=== PATIENT | male | born 1950 | race Caucasian/White ===

== ENCOUNTER 2017-12-10 13:58 | Emergency (ER) | payer OTHER ==
--- OUTSIDE RECORDS SUMMARY | 2017-12-10 14:09 | XMS REPORT ---
:1950 External Reference #:[id number] Author Organization [employer] Address [address] [place] [address] Phone [phone] Care Team Providers Name Role Phone Trevor Hernandez M.D. Primary Care Physician Unavailable Payers Type Date Identification Numbers Payment Provider Subscriber Commercial Policy Number: [id number] [employer] Ppo/Pos/Epo/Nap Pipo Serna PayID: [id number] [address] [place] [address] Problems Date Description Provider Status Onset: Myocardial infarction Active Onset: Hypercholesterolemia Active Onset: Essential hypertension Active Onset: 04/27/2017 Presbyopia Lynda Fong O.D. Active Onset: 04/27/2017 Regular astigmatism Lynda Fong O.D. Active Onset: 04/27/2017 Myopia Lynda Fong O.D. Active Onset: 04/27/2017 Open-angle glaucoma - borderline Lynda Fong O.D. Active Family History Date Family Member(s) Problem(s) Comments Father No Current Problems Mother Cataract Social History Type Date Description Comments Marital Status Legal Status: Occupation [employer] Work Status Full-Time Employment ETOH Use Consumes 1-2 beers per day Smoking Patient has never smoked Recreational Drug Use Denies Drug Use Daily Caffeine Consumes on average 3 cups of regular coffee per day Allergies, Adverse Reactions, Alerts Date Description Reaction Status Severity Comments 04/27/2017 NKDA active Medications Medication Date Status Form Strength Qnty SIG Indications Ordering Provider Atorvastatin Active Tablets 40mg Unknown Calcium 000 Metoprolol Active Tablets ER 50mg Unknown Succinate ER 000 24HR Amlodipine 00/00/0 Active Tablets 5mg Unknown Besylate 000 Nitroglycerin Active Tablets 0.4mg place 1 Unknown 000 Sub tablet under the tongue if needed every 5 minutes for rafal... Aspirin Low Active Chewtabs 81mg Unknown Strength 000 Results Description No Information Procedures Date CPT Code Description Status 04/29/2017 78944 Visual Field Exam Extended Completed 04/27/2017 20747 Scanning Computerized Ophthalmic Diagnostic Imag Completed Posterior Seg On 04/27/2017 48588 Determination Of Refractive State Completed 04/27/2017 77366 New Patient Comprehensive Exam Completed 04/27/2017 33698 Pachymetry Completed Encounters Type Date Location Provider CPT E/M Dx Office Visit 04/29/2017 Pipo Philip MD, Lynda Fong O.D. 33780 H40.013 10:15a Plan of Care 11/16/2017 - Lynda Fong O.D.H40.013 Open angle with borderline findings, low risk, bilateralComments:Dr. Fong is considering you a Glaucoma suspect. This means the eye pressure in your eyes are higher than average, your optic nerve appearance is suspicious, or you have strong risk factors; but you have not been diagnosed with Glaucoma. Follow up appointments are very important to keep.Follow up:6 months VF 30-2/ DFE/OCT nerve
[2017-12-10 14:12] VITALS: BP 154/85
--- NOTE | 2017-12-10 15:03 | UC ---
Respiratory Complaint HPI - HPI Summary HPI Summary: Pt presents with fatigue, dry cough, and sore throat for 2 weeks. He tells me that about 2 weeks ago he developed a fever of 102, body aches, and fatigue - thinks he had the flu. He rested and tried conservative treatment and home and his symptoms improved. Soon thereafter he developed a dry cough and sore throat that has been persistent. He has been using a netti pot. Denies fever, chills, SOB, chest pain, abdominal pain, n/v/d/c. - History of Current Complaint Chief Complaint: UCRespiratory Stated Complaint: COUGH Time Seen by Provider: 12/10/17 14:54 Hx Obtained From: Patient Onset/Duration: Gradual Onset Severity Initially: Mild Severity Currently: Mild Pain Intensity: 1 Pain Scale Used: 0-10 Numeric Character: Cough: Nonproductive - Allergies/Home Medications Allergies/Adverse Reactions: Allergies Allergy/AdvReac Type Severity Reaction Status Date / Time HORSE SERUM Allergy Intermediate Difficulty Uncoded 12/10/17 14:12 Breathing PMH/Surg Hx/FS Hx/Imm Hx Endocrine History: Dyslipidemia Cardiovascular History: Cardiac Disease, Hypertension - Surgical History Surgical History: Yes Surgery Procedure, Year, and Place: bilat hip replacements 1999,2005 [facility]. fx morgan repair 1989 [facility]. TONSILLECTOMY. CARDIAC STENTS X2 2012 [facility] [place]. Right shoulder tendon repair 2014 - Family History Known Family History: Positive: Hypertension - Social History Occupation: Retired Lives: Alone Alcohol Use: Daily Alcohol Amount: 2 DRINKS/DAY Substance Use Type: None Smoking Status (MU): Never Smoked Tobacco Have You Smoked in the Last Year: No - Immunization History Most Recent Influenza Vaccination: 08/2016 Most Recent Tetanus Shot: 20 yrs ago Review of Systems Constitutional: Negative Skin: Negative Eyes: Negative ENT: Sore Throat Respiratory: Cough Cardiovascular: Negative Gastrointestinal: Negative Neurovascular: Negative Musculoskeletal: Negative Neurological: Negative Psychological: Negative All Other Systems Reviewed And Are Negative: Yes Physical Exam Triage Information Reviewed: Yes Appearance: Well-Appearing, No Pain Distress, Well-Nourished Vital Signs: Initial Vital Signs Temp 97.7 F 12/10/17 14:09 Pulse 79 12/10/17 14:09 Resp 18 12/10/17 14:09 BP 154/85 12/10/17 14:09 Pulse Ox 98 12/10/17 14:09 Vital Signs Reviewed: Yes Eyes: Positive: Conjunctiva Clear. Negative: Conjunctiva Inflamed, Discharge ENT: Positive: Hearing grossly normal, Pharynx normal, TMs normal, Uvula midline. Negative: Pharyngeal erythema, Nasal congestion, Nasal drainage, TM bulging, TM dull, TM red, Tonsillar swelling, Tonsillar exudate, Hoarse voice, Sinus tenderness Neck: Positive: Supple, Nontender, No Lymphadenopathy Respiratory: Positive: Chest non-tender, Lungs clear, No respiratory distress, No accessory muscle use, Wheezing - Mild throughout Cardiovascular: Positive: RRR, No Murmur, Pulses Normal Neurological: Positive: Alert Psychological: Positive: Age Appropriate Behavior Skin: Negative: rashes UC Diagnostic Evaluation - Laboratory O2 Sat by Pulse Oximetry: 98 Respiratory Course/Dx - Course Course Of Treatment: Bronchitis - Differential Dx/Diagnosis Provider Diagnoses: Bronchitis Discharge - Discharge Plan Condition: Stable Disposition: HOME Prescriptions: Albuterol HFA INHALER* [Ventolin HFA Inhaler*] 1 - 2 puff INH Q6H PRN #1 mdi PRN Reason: Cough Benzonatate CAP* [Tessalon 100 MG CAP*] 100 mg PO TID PRN #21 cap PRN Reason: Cough predniSONE TAB* [Deltasone TAB*] 40 mg PO DAILY #10 tab Patient Education Materials: Acute Bronchitis (ED) Referrals: Trevor Hernandez MD [Primary Care Provider] - Additional Instructions: If you develop a fever, shortness of breath, chest pain, new or worsening symptoms - please call your PCP or go to the ED. Your blood pressure was high at todays visit. Please see your primary provider within 4 weeks for recheck and re-evaluation.
== END 2017-12-10 15:11 | disposition home or self-care (01) ==
LOC: UCEAST 13:58
DX: J40 Bronchitis, not specified as acute or chronic (principal); E78.5 Hyperlipidemia, unspecified; I11.9 Hypertensive heart disease without heart failure; Z96.643 Presence of artificial hip joint, bilateral; Z95.5 Presence of coronary angioplasty implant and graft
CPT/HCPCS: 99212; G0463

== ENCOUNTER 2018-03-22 10:34 | Day surgery (SDC) | payer OTHER ==
[~2018-03-22 10:34] MED LIST: Buffered Lidocaine 0.9% SYRIN* 5 ML/SYR SYRINGE INTRADERM ONE; Dexamethasone TAB* 4 MG PO ONE; DiMENhydriNATE IV* 50 MG/ML VIAL IV PUSH PRN; Famotidine TAB* 20 MG PO ONE; Morphine INJ* 2 MG/ML 1 ML CARPUJECT IV PRN; Naloxone* 0.4 MG/ML 1 ML VIAL IV PRN; Ondansetron INJ* 2 MG/ML VIAL ONE; PROCHLORPERAZINE INJ 5 MG/ML 2 ML VIAL IV PRN; Scopolamine 1.5 mg* PATCH TRANSDERM PRN; fentaNYL* 50 MCG/ML 2 ML VIAL (100 MCG VIAL) IV PRN; oxyCODONE/Acetamin 5/325 MG* TAB PO PRN
[2018-03-22] MEDS ORDERED: Ondansetron ODT TAB* 4 MG ONE (10:46)
[2018-03-22] MEDS ORDERED: Buffered Lidocaine 0.9% SYRIN* 5 ML/SYR SYRINGE ONE (10:46)
[2018-03-22] MEDS ORDERED: Famotidine TAB* 20 MG ONE (10:46)
[2018-03-22] MEDS ORDERED: Dexamethasone TAB* 4 MG ONE (10:46)
[2018-03-22] MEDS ORDERED: Midazolam* 1 MG/ML 5 ML VIAL (5 MG) ONE (11:47)
[2018-03-22] MEDS ORDERED: fentaNYL* 50 MCG/ML 2 ML VIAL (100 MCG VIAL) ONE (11:47)
[2018-03-22] MEDS ORDERED: Lidocaine 2% EPI 1:200000 MPF*10-20 ML VIAL ONE (12:41)
[2018-03-22] MEDS ORDERED: Triamcinolone Acetonide* 40 MG/ML 1 ML VIAL ONE (12:41)
[2018-03-22] MEDS ORDERED: Oxymetazoline 0.05% NASAL SPR* 15 ML BTL ONE (12:41)
[2018-03-22] MEDS ORDERED: Gelfoam 12-7 ADSORBABL SPONGE* 1 EA SPONGE ONE (12:42)
[2018-03-22] MEDS ORDERED: Gelatin ADSORBABLE (OPHTH)* OPHTH.FILM ONE (12:42)
[2018-03-22] MEDS ORDERED: Propofol* 10 MG/ML 20 ML BTL IV PUSH ONE (13:04)
[2018-03-22] MEDS ORDERED: Glycopyrrolate IV* 0.2 MG/ML 1 ML VIAL ONE (13:04)
[2018-03-22] MEDS ORDERED: Metoprolol Tartrate IV* 1 MG/ML 5 ML VIAL ONE (13:17)
[2018-03-22] MEDS ORDERED: Labetalol IV* 5 MG/ML 20 ML VIAL ONE (13:33)
[2018-03-22 15:12] VITALS: BP 133/82
--- NOTE | 2018-03-23 08:58 | OP ---
DATE OF OPERATION: 03/22/18 - [facility] DATE OF : 54 SURGEON: Arturo Keita MD PRE-OP DIAGNOSIS: Chronic sinusitis with purulent odorous discharge from right side. POST-OP DIAGNOSIS: OPERATIVE PROCEDURE: INDICATIONS: Has on CT scan extensive sinusitis of the right side with anterior and posterior ethmoidectomy and possible carious tooth. He has been on oral antibiotics, nasal steroids and oral steroids without improvement. DESCRIPTION OF PROCEDURE: The patient was taken to the operating room, the patient was intubated. Nose was decongested with Afrin placed pledgets. The right side was identified. CT scan, microshaver, endoscopic sinus surgery instruments including the 0 and 30-degree telescopes were utilized. Next, we turned our attention to the uncinate process on the right side carefully. 2% lidocaine with epinephrine was infiltrated. The uncinate process was removed and hyperplastic mucosa was removed along the uncinate region, as well as the antrostomy, which was again very hyperplastic mucosa as much of it was removed to open up the antrum. Ethmoidectomy was carried out entering the ethmoidal bulla and coursing posteriorly into the lamina papyracea laterally avoiding any intraorbital contents and then posteriorly through the ground lamella to the posterior ethmoidal cells. Gelfoam was then placed in the space between the middle turbinate and lateral nasal wall. The patient was awakened and sent to recovery room in stable condition. Instrument and sponge counts were correct. Blood loss was minimal. [id number]/[facility] #: [id number] CLIVE
[2018-03-25] MEDS ORDERED: Scopolamine PATCH Remove* 1 NOTE MISC PATCH OFF ONE (05:49)
== END 2018-03-22 15:32 | disposition home or self-care (01) ==
LOC: OR 10:34
PROVIDERS: ATTEND Otolaryngology
DX: J32.0 Chronic maxillary sinusitis (principal); J34.89 Other specified disorders of nose and nasal sinuses; I25.2 Old myocardial infarction; Z95.5 Presence of coronary angioplasty implant and graft; I10 Essential (primary) hypertension; E78.5 Hyperlipidemia, unspecified; I25.9 Chronic ischemic heart disease, unspecified; Z79.82 Long term (current) use of aspirin
CPT/HCPCS: 88305; A9270-GY; J2250; J2704; J3010; J3301; J3490; J8540

== ENCOUNTER 2018-05-15 07:01 | Emergency (ER) | payer OTHER ==
--- OUTSIDE RECORDS SUMMARY | 2018-05-15 07:08 | XMS REPORT ---
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 Cigarette Use Never Smoked Cigarettes Cigars Never Smoked Cigars Pipe Never Smoked A Pipe Smokeless Tobacco Never Used Smokeless Tobacco ETOH Use PT Consumes Alcohol Daily Allergies, Adverse Reactions, Alerts Date Description Reaction Status Severity Comments 03/02/2018 NKDA active Medications Medication Date Status Form Strength Qnty SIG Indications Ordering Provider Fluticasone 05/08/ Active Suspension 50mcg/Act 47.4ml 2 puffs J32.2 Arturo Propionate 2017 both Neela joyce MD once a day Doxycycline 00/00/ Active Capsules 100mg take 1 Unknown Hyclate 0000 capsule by mouth twice a day Metoprolol 00// Active Tablets ER 50mg Unknown Succinate ER 0000 24HR Atorvastatin 00/ Active Tablets 40mg take 1 Unknown Calcium 0000 tablet by mouth once daily Amlodipine 00/ Active Tablets 5mg take 1 Unknown Besylate 0000 tablet by mouth once daily Aspirin 81 Low 00/ Active Chewtabs 81mg daily Unknown Dose 0000 Vital Signs Date Vital Result Comment 05/08/2018 Weight 192.00 lb Weight in kg's 87.091 Height 69 inches 5'9" Height in cm's 175.3 cm BMI (Body Mass Index) 28.4 kg/m2 03/02/2018 Weight 190.00 lb Weight in kg's 86.184 Height 69 inches 5'9" Height in cm's 175.3 cm BMI (Body Mass Index) 28.1 kg/m2 Results Test Date Test Result H/L Range Note Laboratory test 03/22/2018 Surgical Pathology SEE RESULT BELOW 1 finding 1 SEE RESULT BELOW Name: KARIS SERNA : [address]: Joseph Keita MD Acct: [id number] Unit: [id number] AGE: 67 Location: OR Re03/22/18 SEX: M Status: VIOLETTA SERNA SPEC: [id number] VANNESA: 03/22/18-[address]: Joseph Keita MD REQ: [id number] RECD: 03/22/18 STATUS: SOUT _ ORDERED: LEVEL 4 FINAL DIAGNOSIS Right ethmoid sinus contents: -- Chronically inflamed respiratory mucosal fragments and bone. PRE-OPERATIVE DIAGNOSIS Chronic maxillary sinusitis right side GROSS DESCRIPTION The specimen is received in formalin labeled, Contents of Right Ethmoid, and consists of a 2.0 x 2.0 x 0.4 cm aggregate of white-pink irregular soft tissue fragments admixed with red-brown blood clot and scant bone. The specimen is filtered and entirely submitted in one cassette. Signed by and Reported on: Yogi Ratliff MD [address] REPORT DEPARTMENT OF PATHOLOGY, [address] [place] [address] Yogi Ratliff M.D. Director [facility] # [id number] Procedures Date CPT Code Description Status 03/22/2018 06008 N/Endoscopy/Max Antrostomy Completed 03/22/2018 01229 Nasal Endoscopy/Ethmoidectomy, Total Completed Encounters Type Date Location Provider CPT E/M Dx Office Visit 03/27/2018 8:30a [facility],After 11/07/07 [place] [address] J32.2 Office Visit 03/02/2018 2:15p [facility],After 11/07/07 [place] [address] J32.0 Plan of Care 05/08/2018 - Arturo Keita MDJ32.2 Chronic ethmoidal sinusitisNew Medication: Fluticasone Propionate 50 mcg/ActJ32.0 Chronic maxillary sinusitis
--- NOTE | 2018-05-15 07:13 | UC ---
Lower Extremity/Ankle HPI - HPI Summary HPI Summary: The patient is a 67-year-old male who presents here with a one-week history of progressively worsening left ankle pain and swelling. He denies any trauma. He states the lateral aspect of his ankle is most painful. The past 24 hours he has been unable to bear weight due to the pain. He denies any fever or chills. He denies any other joint pain or swelling. He has no history of gout. - History of Current Complaint Stated Complaint: ANKLE INJURY Time Seen by Provider: 05/15/18 07:08 Hx Obtained From: Patient Onset/Duration: Gradual Onset, Lasting Days Severity Initially: Mild Severity Currently: Moderate Pain Intensity: 4 - worse with wt bearing Aggravating Factor(s): Standing, Ambulation Alleviating Factor(s): Rest Able to Bear Weight: No - Allergies/Home Medications Allergies/Adverse Reactions: Allergies Allergy/AdvReac Type Severity Reaction Status Date / Time HORSE SERUM Allergy Intermediate Difficulty Uncoded 05/15/18 07:09 Breathing PMH/Surg Hx/FS Hx/Imm Hx Previously Healthy: Yes Endocrine History: Dyslipidemia Cardiovascular History: Cardiac Disease, Hypertension, Myocardial Infarction - Surgical History Surgical History: Yes Surgery Procedure, Year, and Place: bilat hip replacements 1999,2005 [facility]. fx morgan repair 1989 [place]. TONSILLECTOMY. CARDIAC STENTS X2 2012 [facility] [place]. Right shoulder tendon repair 2014 - Family History Known Family History: Positive: Hypertension - Social History Alcohol Use: Daily Alcohol Amount: 2 DRINKS/DAY Substance Use Type: None Smoking Status (MU): Never Smoked Tobacco Have You Smoked in the Last Year: No - Immunization History Most Recent Influenza Vaccination: 08/2016 Most Recent Tetanus Shot: 20 yrs ago Review of Systems Constitutional: Negative Skin: Negative Eyes: Negative ENT: Negative Respiratory: Negative Cardiovascular: Negative Gastrointestinal: Negative Genitourinary: Negative Motor: Negative Neurovascular: Negative Musculoskeletal: Arthralgia Neurological: Negative Psychological: Negative Is Patient Immunocompromised?: No All Other Systems Reviewed And Are Negative: Yes Physical Exam Triage Information Reviewed: Yes Appearance: Well-Appearing, No Pain Distress, Well-Nourished Vital Signs Reviewed: Yes Eyes: Positive: Conjunctiva Clear ENT: Positive: Hearing grossly normal. Negative: Nasal congestion, Nasal drainage, Trismus, Muffled voice, Hoarse voice Neck: Positive: Supple, Nontender Respiratory: Positive: Lungs clear, Normal breath sounds, No respiratory distress Cardiovascular: Positive: RRR, No Murmur Musculoskeletal: Positive: ROM Limited @ - left ankle-painful ROM, swollen ankle and foot- unable to bear wt/tender LM, no foot tenderness Psychological Exam: Normal Skin Exam: Normal Diagnostics - Radiology No standard instances Xray Interpretation: No Acute Changes - DJD/arterosclerosis Radiology Interpretation Completed By: Radiologist Lower Extremity Course/Dx - Course Course Of Treatment: pain seems out of proportion to xr and exam findings. I have suggest he see a specialist for their opinion. To see Cosmo Samuel from here. - Differential Dx/Diagnosis Provider Diagnoses: left ankle pain of uncertain cause Discharge - Sign-Out/Discharge Documenting (check all that apply): Discharge/Admit/Transfer - Discharge Plan Condition: Stable Disposition: HOME Patient Education Materials: Swollen Joint (ED) Referrals: Raciel Samuel MD [Medical Doctor] - As Soon As Possible (please go directly to office from here) - Billing Disposition and Condition Condition: STABLE Disposition: Home Images Feet (Multiple View): 1 - tender and swollen here/slight erthyema. swelling extends to dorsum of mid foot/good cap refill/n/v intact, + DP pulse. Pain with flexion/ext
[2018-05-15 07:14] VITALS: BP 109/74
--- NOTE | 2018-05-15 08:02 | RAD ---
INDICATION: Atraumatic pain and swelling of the left ankle COMPARISON: None. TECHNIQUE: 3 views of the left ankle were obtained. FINDINGS: The well corticated bones exhibit normal alignment. Degenerative changes include amorphous calcification between the distal tibia and fibula at the expected location of the interosseous ligament. Immediately posterior to the talocalcaneal joint is a 2 mm well-circumscribed calcification of doubtful clinical significance. Joint spaces appear maintained. No fracture is seen. There is moderate calcification overlying the expected location of the dorsalis pedis artery and distal posterior tibial artery. IMPRESSION: 1. NO RADIOGRAPHICALLY ACUTE APPARENT FRACTURE OR DISLOCATION INVOLVING THE LEFT ANKLE. 2. INCIDENTALLY NOTED IS CALCIFIED ATHEROSCLEROSIS OVERLYING THE DISTAL INFRAPOPLITEAL ARTERIES. PLEASE CORRELATE TO SIGNS OR SYMPTOMS OF LOWER EXTREMITY ARTERIAL INSUFFICIENCY. If the patient's symptoms persist, follow-up imaging is recommended.
== END 2018-05-15 08:38 | disposition home or self-care (01) ==
LOC: UCEAST 07:01
DX: M25.572 Pain in left ankle and joints of left foot (principal); I70.202 Unspecified atherosclerosis of native arteries of extremities, left leg; E78.5 Hyperlipidemia, unspecified; I25.2 Old myocardial infarction; I10 Essential (primary) hypertension; Z95.5 Presence of coronary angioplasty implant and graft; Z96.643 Presence of artificial hip joint, bilateral; Z82.49 Family history of ischemic heart disease and other diseases of the circulatory system
CPT/HCPCS: 99213; G0463

== ENCOUNTER 2018-11-28 11:13 | Day surgery (SDC) | payer OTHER ==
--- NOTE | 2018-11-23 16:11 | HP ---
CC: Dr. Hernandez; Dr. Matthias Skaggs * ADMISSION HISTORY AND PHYSICAL: DATE OF ADMISSION: 11/28/18 ATTENDING SURGEON: Dr. Mau Coombs.* (DICTATED BY JULIET TEJEDA) CHIEF COMPLAINT: Bilateral inguinal hernias. HISTORY OF PRESENT ILLNESS: This is a 68-year-old male who within the last 3 to 6 months has experienced intermittent but gradually increasing right groin pain with occasional bulging. He describes the pain as a burning sensation. 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 He occasionally notes gurgling within the bulge and at times will manually reduce the hernia to achieve relief. He has not had any symptoms to suggest incarceration or strangulation. He has had little or no symptoms on the left side. He specifically denies any other GI or complaints. He was seen in the office by Dr. Coombs on 10/30/18, at which time a physical exam confirmed the presence of a reducible right inguinal hernia as well as a weakness on the left side. Dr. Coombs discussed with him the indications for surgery, the risks, benefits, and alternatives, and the patient would like to proceed as scheduled with laparoscopic repair of bilateral inguinal hernias with mesh. He was seen for cardiac risk evaluation by Dr. Skaggs (see separate attached). PAST MEDICAL HISTORY: [place] with coronary artery disease, status post PCI with stenting x2 for right coronary artery, 2012 (see attached from Dr. Skaggs), hypertension, hyperlipidemia, occasional GERD symptoms, controlled generally by diet. He occasionally has had some cough attributed to bronchospasm following acute bronchitis, but no acute or recent problems. PAST SURGICAL HISTORY: Previous surgeries include sinus surgery in the spring, a right shoulder rotator cuff repair in 2015, PCI of right coronary artery as noted above, left total hip replacement 2005, right total hip replacement 1999, tonsillectomy remotely, and ORIF of skull/facial fracture in 1989. No reported surgical or anesthesia complications. CURRENT MEDICATIONS: 1. Aspirin 81 mg once daily (the patient instructed to hold preoperatively, his last dose being 11/22/18). 2. Metoprolol succinate extended release 50 mg once daily. 3. Amlodipine 5 mg once daily. 4. Atorvastatin 80 mg once daily. 5. Nitroglycerin sublingual 0.4 mg p.r.n. (the patient has never used). 6. Ventolin HFA MDI p.r.n. (only required after acute respiratory infections). DRUG ALLERGIES: TETANUS TOXOID (likely from horse serum as a child), fever ( the patient has tolerated tetanus boosters since that time without any problem). FAMILY HISTORY: Negative for anesthesia problems, bleeding or clotting disorders. SOCIAL HISTORY: The patient is . 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 He is a lifelong nonsmoker. He typically drinks 2 drinks per day (beer or wine). He denies any other recreational drug use. 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 REVIEW OF SYSTEMS: General: No recent constitutional symptoms or acute illnesses. Weight has been stable. HEENT: No problems reported. Cardiovascular: No chest pain, palpitations, or heart murmur. See also attached from Dr. Skaggs. Respiratory: No asthma. No recent cough or shortness of breath. Gastrointestinal: No problems reported. Colonoscopy done in 2014 with apparent 5- year recommended followup and no interval symptoms of concern. Genitourinary: No problems reported. Endocrine: No diabetes or thyroid dysfunction. Remainder of review of systems is negative. PHYSICAL EXAMINATION GENERAL: Well-nourished, well-developed male, in no acute distress. VITAL SIGNS: Height 69.5 inches, weight 190 pounds, blood pressure 112/72, pulse 66, respirations 18. SKIN: Warm and dry. No suspicious rashes or lesions noted. HEENT: Pupils equal, round and reactive. EOMs intact. No conjunctival pallor. Oropharynx: Teeth in good repair, no intraoral lesions. NECK: No lymphadenopathy, thyromegaly or masses. LUNGS: Clear to auscultation. No wheezes. HEART: Regular rate and rhythm. No murmur appreciated. ABDOMEN: Soft, nontender to palpation. No palpable masses or organomegaly. Hernias as per Dr. Coombs' exam, not repeated today. GENITALIA: Not examined. EXTREMITIES: No edema. RECTAL: Not done. BACK: No spinous process or CVA tenderness. NEUROLOGICAL: Grossly intact. IMPRESSION: Bilateral inguinal hernias. PLAN/RECOMMENDATIONS: Laparoscopic repair of bilateral inguinal hernias with mesh. [place]AY [place], [place] [id number]/[facility] #: [id number] MTDD
[~2018-11-28 11:13] MED LIST changes: -Buffered Lidocaine 0.9% SYRIN* 5 ML/SYR SYRINGE INTRADERM ONE; +Buffered Lidocaine 1% SYRIN* 1 ML/SYRINGE INTRADERM ONE; +Dexamethasone IV* 4 MG/ML 1 ML (4 MG) IV SLOW PU ONE; -Dexamethasone TAB* 4 MG PO ONE; -DiMENhydriNATE IV* 50 MG/ML VIAL IV PUSH PRN; +Famotidine IV* 10 MG/ML 2 ML (20 mg) IV ONE; -Famotidine TAB* 20 MG PO ONE; +Lactated Ringers 1000 ML Bag* 1,000 ML IV SCH; -Morphine INJ* 2 MG/ML 1 ML CARPUJECT IV PRN; -Naloxone* 0.4 MG/ML 1 ML VIAL IV PRN; -Ondansetron INJ* 2 MG/ML VIAL ONE; -PROCHLORPERAZINE INJ 5 MG/ML 2 ML VIAL IV PRN; -Scopolamine 1.5 mg* PATCH TRANSDERM PRN; -fentaNYL* 50 MCG/ML 2 ML VIAL (100 MCG VIAL) IV PRN; -oxyCODONE/Acetamin 5/325 MG* TAB PO PRN
[2018-11-28] MEDS ORDERED: Famotidine IV* 10 MG/ML 2 ML (20 mg) ONE (11:59)
[2018-11-28] MEDS ORDERED: Dexamethasone IV* 4 MG/ML 1 ML (4 MG) ONE (11:59)
[2018-11-28] MEDS ORDERED: ceFAZolin 2 GM PREMIX in ORs 2 GM/50 ML BAG IVPB ONE (12:05)
[2018-11-28] MEDS ORDERED: fentaNYL* 50 MCG/ML 2 ML VIAL (100 MCG VIAL) ONE (12:16)
[2018-11-28] MEDS ORDERED: Midazolam* 1 MG/ML 2 ML VIAL (2 MG) ONE (12:16)
[2018-11-28] MEDS ORDERED: Bupivacaine 0.25% W/EPI* 10 ML SDV ONE (13:28)
[2018-11-28] MEDS ORDERED: Propofol* 10 MG/ML 20 ML BTL ONE (14:04)
[2018-11-28] MEDS ORDERED: Ketorolac INJ* 30 MG/ML 1 ML VIAL ONE ×2 (14:04→17:00)
[2018-11-28] MEDS ORDERED: Ondansetron INJ* 2 MG/ML VIAL ONE (14:04)
[2018-11-28] MEDS ORDERED: Lidocaine 2% PF * 5 ML VIAL ONE (14:05)
[2018-11-28] MEDS ORDERED: Rocuronium* 10 MG/ML VIAL ONE (14:07)
[2018-11-28] MEDS ORDERED: Sugammadex * 200 MG/2 ML VIAL IV PUSH ONE (14:07)
[2018-11-28] MEDS ORDERED: Naloxone* 0.4 MG/ML 1 ML VIAL IV PRN (14:41)
[2018-11-28] MEDS ORDERED: DiMENhydriNATE IV* 50 MG/ML VIAL IV PUSH PRN (14:41)
[2018-11-28] MEDS ORDERED: fentaNYL* 50 MCG/ML 2 ML VIAL (100 MCG VIAL) IV PRN (14:41)
[2018-11-28] MEDS ORDERED: HYDROcodone/ACETAMIN 5-325 MG* 1 TAB ONE (17:04)
[2018-11-28 17:46] VITALS: BP 150/84
--- NOTE | 2018-11-28 21:56 | OP ---
CC: Trevor Hernandez MD * DATE OF OPERATION: 11/28/18 - [facility] DATE OF : 54 SURGEON: Mau Coombs MD. HORTICULTURAL TECHNICAL OFFICER: JULIET Chaney. ANESTHESIOLOGIST: Vijay Hayes MD. ANESTHESIA: General endotracheal. PRE-OP DIAGNOSIS: Bilateral inguinal hernias. POST-OP DIAGNOSIS: Bilateral inguinal hernias. OPERATIVE PROCEDURE: Laparoscopic preperitoneal repair of bilateral inguinal hernias with mesh. ESTIMATED BLOOD LOSS: Less than 20 mL. IV FLUIDS: Crystalloid. SPECIMEN: None. DRAINS: None. COMPLICATIONS: None. COUNTS: Instrument, needle, and sponge counts were correct. DESCRIPTION OF PROCEDURE: The patient was brought to the operating room and placed on the table supine. Sequential compression devices were placed on both lower extremities. General anesthesia was administered. Norris catheter was placed. The patient's abdomen was prepped and draped in the usual sterile fashion and he received appropriate intravenous antibiotics. Local anesthetic was infiltrated into the skin and soft tissue prior to making each incision. An infraumbilical incision was created transversely and the subcutaneous tissues were divided. The anterior rectus fascia was identified to the left of midline and incised transversely. The underlying rectus abdominis muscle was retracted laterally and a preperitoneal balloon dissector was positioned down to the level of pubic symphysis and insufflated under direct visualization. This was then removed and replaced with a 12-mm blunt port. Under direct visualization, 5 mm ports were placed in the lower midline. Dissection proceeded on the left. The inferior epigastric vessels were noted to be partially dissected away from the anterior abdominal wall as the initial trocar placement had been in intramuscular position. The vessels were then dissected from the peritoneum and elevated. The dissection proceeded from the midline laterally starting at the pubic symphysis and identifying a direct inguinal hernia as well as an indirect inguinal hernia. The dissection proceeded laterally to the anterosuperior iliac spine. The hernia sac from the direct space was elevated and this was dissected free with an adequate mobilization to allow placement of a mesh. The dissection then was turned to the right side where the patient was noted to have a large indirect inguinal hernia without any evidence of a direct inguinal hernia. The sac was again able to be dissected free from the spermatic cord, components of which were preserved. There was a rent made in the hernia sac, which was able to be closed by twisting it upon itself and then applying endoscopic clips. Again, dissection proceeded out the anterosuperior iliac spine. At this point, repairs were performed on both sides using the Bard 3DMax mesh large size patch. Each patch was positioned to cover the direct , indirect, and femoral spaces and crossed the midline. The right mesh was placed first and then the left side mesh. After confirming proper placement of the mesh, it was held in place while the preperitoneal space was allowed to desufflate assuring that the mesh lay in good position. The ports were then removed and the infraumbilical incision was closed with 0 Vicryl to appropriate the anterior rectus fascia in a simple fashion. Skin incisions were closed with 4-0 Monocryl in subcuticular fashion. Steri-Strips were applied. The patient tolerated this procedure well, was extubated and transferred to recovery stable. [id number] #: [id number] CLIVE
== END 2018-11-28 17:40 | disposition home or self-care (01) ==
LOC: OR 11:13
PROVIDERS: ATTEND Surgery
DX: K40.20 Bilateral inguinal hernia, without obstruction or gangrene, not specified as recurrent (principal); I25.10 Atherosclerotic heart disease of native coronary artery without angina pectoris; I25.2 Old myocardial infarction; Z95.5 Presence of coronary angioplasty implant and graft; I10 Essential (primary) hypertension; E78.5 Hyperlipidemia, unspecified; K21.9 Gastro-esophageal reflux disease without esophagitis; Z79.82 Long term (current) use of aspirin; J45.909 Unspecified asthma, uncomplicated
CPT/HCPCS: C1781; J0690; J1100; J1885; J2250; J2405; J2704; J3010